=== PATIENT | male | born 1950 | race Hispanic/Latino ===

== ENCOUNTER 2017-04-14 19:00 | Observation (INO) | payer OTHER, MEDICARE ==
[~2017-04-14] VITALS: Ht 162.6 cm; Wt 66.2 kg
[~2017-04-14 19:00] MED LIST: AMLO5TAB2 PO; ASPI81TA3 PO; ATOR10TA66 PO; CARV6.252 PO; GLIP10TA10 PO; INSU100I SQ; INSU100V7 SUBQ; ISOS60TA2 PO; LISI-567 PO; TAMS0.4C98 PO
--- NOTE | 2017-04-14 19:05 | ED.REPORT ---
HPI-Syncope Date of Service Apr 14, 2017 ED Provider: Dr. Layne Pt is a 67 y/o male w/ a hx of CAD and TN in ' s/p LAD stenting, IDDM, HTN, hyperlipidemia, presenting to the ED via EMS with a family member c/o epigastric abdominal pain w/ radiation to the back onset prior to arrival. The patient was at work drinking coffee and eating and felt dizzy and his vision became black and he lost consciousness. Once he regained consciousness, he felt similarly dizzy and then 5 minutes later began to experience sharp, pleuritic, epigastric abdominal pain with radiation only to the back. Upon arrival of EMS, he was hypotensive and had ST elevation in leads V2 and V3 without reciprocal ST depression. He was given aspirin but not nitro due to hypotension. He has never experienced this previously, even when he had prior heart problems in the past. Pt denies chest pain, nausea, vomiting, numbness, weakness, KIM, current vision changes. At time of interview, his pain is almost completely resolved. For the past few days, he has been feeling fine without any illnesses. He had recent medication changes but this is not known at this time. He is not anticoagulated. Nursing Notes Stated Complaint: CHEST PAIN Nursing Notes Reviewed: Yes Allergies: Coded Allergies: Penicillins (Unverified Allergy, Unknown, 09/24/15) Unknown reaction; per cathode ray tube salvage processor RN, patient indicated he has a "Penicillin allergy". Scheduled Amlodipine (Amlodipine) 5 Mg Tablet 10 MG PO DAILY Aspirin Chew (Aspirin Chew) 81 Mg Tablet 81 MG PO DAILY Atorvastatin Calcium (Atorvastatin Calcium) 10 Mg Tablet 40 MG PO HS Carvedilol (Carvedilol) 6.25 Mg Tablet 25 MG PO BID Clopidogrel (Clopidogrel) 75 Mg Tablet 75 MG PO DAILY Gemfibrozil (Gemfibrozil) 600 Mg Tablet 600 MG PO BID Glipizide (Glipizide) 10 Mg Tablet 10 MG PO DAILY Hydrochlorothiazide (Hydrochlorothiazide) 12.5 Mg Capsule 12.5 MG PO DAILY Insulin Glargine (Lantus U100 Insulin Vial) 100 Unit/Ml Vial 60 UNIT SUBQ BID Isosorbide MN ER (Isosorbide MN ER) 60 Mg Tablet 60 MG PO 0730 Lisinopril (Lisinopril) 20 Mg Tablet 20 MG PO BID Pantoprazole (Pantoprazole DR) 40 Mg Tablet.dr 40 MG PO DAILY Tamsulosin (Flomax) 0.4 Mg Capsule 0.8 MG PO DAILY Terazosin (Terazosin) 10 Mg Capsule 10 MG PO HS Scheduled PRN Insulin Aspart (NovoLOG U-100 Pen) 100 Unit/Ml Insuln.pen 5 UNITS SQ PRN BG > 200 Miscellaneous Medications Empagliflozin (Jardiance) 10 Mg Tablet 10 MG PO Insulin Lispro (Humalog Kwikpen) 200 Unit/Ml (3 Ml) Insuln.pen 200 UNIT SQ General Time Seen by Provider: 19:05 Chief Complaint Lost consciousness Hx Obtained From: Patient, Other family..., EMS Arrived By: Ambulance Onset Occurred: Just prior to arrival Symptom Duration: 1 - 15 minutes Progression Since Onset: Gradually improving Location: : Abdomen Quality: Pleuritic, Sharp Severity: Current: Mild Severity: Maximum: Moderate Similar Sx Previous: No Past Medical History Past Medical History CAD s/p cardiac stenting IDDM Hypertension TN in 2016 s/p stenting to LAD Hyperlipidemia Past Surgical History 6 Right shoulder surgeries Neck surgery Balloon angioplasty to left anterior descending artery. Smoking History Former Smoker Ambulatory Status Independent Review of Systems Constitutional: Denies: Chills, Fever Respiratory: Reports: Shortness of breath, Denies: Non-productive cough Cardiovascular: Denies: Chest pain GI: Reports: Abdominal pain, Denies: Diarrhea, Nausea, Vomiting Neurologic: Reports: Syncope, Vision change, Denies: Focal weakness, Headache, Numbness, Weakness Complete sys rev & neg: except as marked. Physical Exam Initial Vital Signs Vital Signs (First) Date Time Temp Pulse Resp B/P Pulse Ox O2 Delivery O2 Flow Rate FiO2 04/14/17 19:26 36.1 62 18 101/56 98 Room Air Initial VS: Reviewed, Vital signs normal Head / Eyes: Atraumatic, Normocephalic, PERRL Neck: Supple, Full range of motion Upper Extremities: Vascular intact, Neuro intact, No swelling, No tenderness Skin: Warm, Dry, No cyanosis Psychiatric: Mood/affect normal, Behavior normal, Normal thought content General/Constitutional: Awake, Alert, No acute distress, Cooperative, Not toxic appearing Respiratory / Chest: Atraumatic, Breath sounds NL, Breath sounds = bilat, No respiratory distress, No rales, No rhonchi, No wheezing, No retractions, No stridor, No chest tenderness, No chest wall deformity Cardiovascular: Heart rate NL, Regular rhythm, Heart sounds NL, No gallop, No murmurs, No rubs, Cap refill not delayed, Peripheral circulation NL, Pulses = bilaterally Lower Extremity / Pelvis / MS: Atraumatic, Full range of motion, No deformity, Neurologic intact, Vascular intact Neurologic: Oriented X3, Speech NL, No motor deficits, No sensory deficits, CN II - XII intact, Cerebellar NL, Memory NL ENT: Atraumatic, Airway patent Mouth: Positive: Mucous membranes dry Abdomen: Atraumatic, Soft, Non-tender, No guarding, No rebound, No distention, No palpable mass, No pulsatile mass Interpretation & Diagnostics Interpretation & Diagnostics: CT chest/abd w/ and w/out contrast: IMPRESSION: 1. No evidence of aortic dissection. 2. Dense left coronary artery atherosclerotic calcifications. 3. Atherosclerotic calcifications in the origins of the renal arteries which may cause significant stenosis. 4. Cholelithiasis with prominence of the gallbladder wall. Acute cholecystitis cannot be excluded. If there is clinical concern for cholecystitis, then abdominal ultrasound should be performed for further evaluation. Dictated by: Noelle Eduardo MD, PhD on 04/14/2017 at 21:04 Approved by: Noelle Eduardo MD, PhD on 04/14/2017 at 21:13 Lab Results Interpretation Result Diagram: 04/14/17190904/14/171909 Test 04/14/17 19:10 04/14/17 22:15 White Blood Count 9.3th/mm3 (3.8-10.1) Red Blood Count 5.34mil/mm3 (4.40-5.80) Hemoglobin 14.7g/dL (13.8-17.2) Hematocrit 42.5% (41.0-50.0) Mean Corpuscular Volume 79.6fL (81-100) Mean Corpuscular Hemoglobin 27.5pg (27.0-35.0) Mean Corpuscular Hemoglobin Concent 34.6% (32.0-37.0) Red Cell Distribution Width 13.9% (12.3-15.4) Platelet Count 403bil/L (150-400) Neutrophils (%) (Auto) 54.2% (40-74) Lymphocytes (%) (Auto) 34.5% (14-46) Monocytes (%) (Auto) 8.7% (4-12) Eosinophils (%) (Auto) 2.0% (0-5) Basophils (%) (Auto) 0.4% (0-3) Prothrombin Time 9.5sec (8.1-12.5) Prothromb Time International Ratio 0.89ratio Activated Partial Thromboplast Time 22.4sec (22.8-33.0) Sodium Level 135mEq/L (134-144) Potassium Level 4.0mEq/L (3.5-5.2) Chloride Level 95mEq/L (97-108) Carbon Dioxide Level 21mmol/L (18-29) Blood Urea Nitrogen 28mg/dL (8-27) Creatinine 1.26mg/dL (0.76-1.27) Estimat Glomerular Filtration Rate 60mL/min (>59) Glucose Level 177mg/dL (60-99) Calcium Level 9.5mg/dL (8.5-10.1) Total Bilirubin 0.7mg/dL (0.0-1.2) Aspartate Amino Transf (AST/SGOT) 20U/L (0-50) Alanine Aminotransferase (ALT/SGPT) 18U/L (0-44) Alkaline Phosphatase 150U/L (25-160) Total Protein 8.0g/dL (6.4-8.4) Albumin 4.4g/dL (3.4-5.0) Lipase 16U/L (13-60) Magnesium Level 2.6mg/dL (1.6-2.6) Troponin T 0.010ug/L (0.0-0.011) Thyroid Stimulating Hormone (TSH) 0.963uIU/mL (0.450-4.500) ECG Interpretation ECG Interpretation: Sinus rhythm rate 67 Inferior Q waves and J point elevation in V2, V3, V4 Flipped T waves in I, AvL, V4, V5, V6 Similar to EKG taken 09/26 with exception of inverted T waves Time: 19:18 Interpreted by: ED physician Normal ECG Interpretation: Normal intervals X-Ray Chest Interpretation Chest Xray Interpretation: IMPRESSION: No acute cardiopulmonary disease process. Dictated by: Noelle Eduardo MD, PhD on 04/14/2017 at 19:49 Approved by: Noelle Eduardo MD, PhD on 04/14/2017 at 19:49 View: Portable, 1 view Interpretation / Wet Read by: Interpret - Radiologist Re-Eval/Medical Decision Med Decision/Clinical Course The patient presents after a syncopal episode, given his cardiac history or symptoms prior to the syncopal episode he will be admitted for further evaluation. After waking up the patient had some lower chest and epigastric pain radiating to his back. Upon arrival here his symptoms were almost resolved and shortly after resolved completely. He had a markedly abnormal EKG however it is similar to his prior EKG he does not have any reciprocal changes and his EKG was obtained when he did not have any chest pain. Additional differential diagnoses considered were acute coronary syndrome, pulmonary embolus, aortic dissection, pancreatitis, cholecystitis. The patient was found to have an abnormal gallbladder however on examination he did not have any pain to his right upper quadrant. Re-Evaluation/Progress #1: Time of Eval: 20:59 Re-Evaluation/Progress Note: Pt rechecked. Remains asymptomatic. Awaiting CT read. Re-Evaluation/Progress #2: Time of Eval: 21:34 Re-Evaluation/Progress Note: Pt rechecked. Informed pt of need for admission. Abdominal exam remains benign. Pt understands and agrees with plan for admission. All questions addressed. Consultation : Referral / Consult Name: Troy Greenwood MD Consulted With: Hospitalist Call Returned at: 21:33 Gastroenterology Nurse: Will see patient, Agrees with eval, Agrees with plan, Accepts admit Counseled Regarding: Diagnosis, Lab results, Need for admission Discharge & Departure Impression: Primary Impression: Syncope Syncope type: unspecified Qualified Code: R55 - Syncope and collapse Additional Impressions: Cholelithiasis Cholelithiasis location: gallbladder Cholecystitis presence: without cholecystitis Biliary obstruction: without biliary obstruction Qualified Code : K80.20 - Calculus of gallbladder without cholecystitis without obstruction Elevated troponin Disposition: ADMITTED TO HOSPITAL Discharge Condition All VS Reviewed: Yes Condition: Stable Referrals: Wilfred Kebede MD (PCP) Gloriaibmary Attestation Portions of this note were transcribed by Yan Nascimento. I, Dr. Layne personally performed the history, physical exam and medical decision-making; I reviewed and confirmed the accuracy of the information in the transcribed note. Signed by Jose Alberto Mcnally, 6/3/1930 copies to: Wilfred Kebede MD, Jena M MD Apr 14, 2017 19:05 YAN NASCIMENTO Apr 14, 2017 19:12
[2017-04-14] MEDS ORDERED: Dextrose 5% 250 ML IV ONE (19:16)
[2017-04-14] MEDS ORDERED: Heparin 1,000 Unit/mL 10 mL Inj ONE (19:16)
[2017-04-14] MEDS ORDERED: Nitroglycerin 50,000 mcg/250 mL D5W Premix IV ONE (19:16)
[2017-04-14] MEDS ORDERED: Heparin 1,000 Units/500 mL NS Premix IV ONE (19:16)
[2017-04-14] MEDS ORDERED: Heparin 10,000 Unit/1,000 mL NS Premix IV ONE (19:17)
[2017-04-14] MEDS ORDERED: NitroPRUSSIDE 25,000 mCg/mL 2 mL Inj IV ONE (19:17)
[2017-04-14] MEDS ORDERED: 0.9% Sodium Chloride 0 ML ONE (19:17)
[2017-04-14 19:20] LABS: BASOPHILS % (AUTO) 0.4 % (0-3); MONOCYTES % (AUTO) 8.7 % (4-12); Mean Corpuscular Hemoglobin 27.5 pg (27.0-35.0); Mean Corpuscular Volume 79.6 fL (81-100); NEUTROPHILS % (AUTO) 54.2 % (40-74); Platelet Count 403 bil/L (150-400)
[2017-04-14] MEDS ORDERED: 0.9% Sodium Chloride 1,000 ML IV ONE (19:20)
[2017-04-14 19:26] VITALS: BP 101/56; PULSE 62; RESP 18; O2SAT 98
[2017-04-14 19:30] VITALS: BP 100/57; PULSE 65; RESP 16; O2SAT 97
--- NOTE | 2017-04-14 19:50 | DRSVH ---
PROCEDURE: X-RAY CHEST ONE VIEW, PORTABLE ([id number]) INDICATIONS: STEMI TECHNIQUE: One view of the chest was acquired. COMPARISON: None. FINDINGS: Surgical changes and devices: Cervical spine fixation hardware Lungs and pleura: No pleural effusions or pneumothorax. Lungs are clear. Mediastinum: Mediastinal contours appear normal. Heart size is normal. Bones and chest wall: No suspicious bony lesions. Overlying soft tissues appear unremarkable. IMPRESSION: No acute cardiopulmonary disease process. Dictated by: Noelle Eduardo MD, PhD on 04/14/2017 at 19:49 Approved by: Noelle Eduardo MD, PhD on 04/14/2017 at 19:49
[2017-04-14 20:00] VITALS: BP 101/54; PULSE 67; RESP 16; O2SAT 96
[2017-04-14 20:01] LABS: INR 0.89 ratio
[2017-04-14 20:24] LABS: TROPONIN T 0.023 ug/L (0.0-0.011)
--- NOTE | 2017-04-14 21:14 | DRSVH ---
PROCEDURE: CT ANG CHEST/ABD W/WO CONTRAST ([id number]) INDICATIONS: syncope with epigastric pain and back pain TECHNIQUE: Precontrast 5 mm thick sections acquired from the lung apices to the iliac crests. After the adminis tration of intravenous contrast, 3 mm thick sections again acquired from the lung apices to the iliac crests. 3-dimensional maximum intensity projection (MIP) oblique sagittal and coronal reformats wer e then acquired, and/or 3-dimensional volume rendering reformats. For radiation dose reduction, the following was used: automated exposure control. COMPARISON: None. FINDINGS: Image quality: Excellent. AORTA: Intramural hematoma: Absent Maximum hematoma thickness: Not applicable Focal contrast enhancement: Intramural blood pool (< 2 mm neck or imperceptible communication with aortic lumen): Absent. Ulcer-like projection (broad communication with aortic lumen > 3 mm): Absent. Dissection: Absent. Ra[place] classification: Not applicable. Maximum aortic diameter: 3.3 cm. [If [place] A dissection, > 5.0 cm has a poorer prognosis. If [place] B dissection, > 4.0 cm has a poorer prognosis.] Periaortic hematoma: Absent. CHEST: Lungs and pleura: No acute airspace opacities. Granuloma noted in the right lung base. No pleural e ffusions or pneumothorax. Central and peripheral airways are patent and normal in caliber. Mediastinum: Heart size is normal. Atherosclerotic calcifications are noted in the aorta, great vess els and dense atherosclerotic calcifications in the left coronary vasculature. No pericardial effusi on. No mediastinal or hilar adenopathy by size criteria. Central pulmonary arteries are normal in s ize. Esophagus is normal in caliber. No hiatal hernias. Bones and chest wall: Cervical spine fixation hardware noted. No axillary adenopathy by size criter ia. Calcified mediastinal and right hilar lymph nodes noted compatible with sequela prior granulomato us disease. Thyroid gland is within normal limits. No suspicious bony lesions. No vertebral body co mpression fractures. ABDOMEN: Vasculature: Celiac trunk and mesenteric arteries are patent. Renal arteries are also patent. Solid organs: Liver and spleen are normal in size. Gallbladder contains a 2.7 cm gallstone in the g allbladder neck. Gallbladder wall is prominent. Biliary system is non dilated. Pancreas enhances n ormally. No adrenal nodules. Both kidneys are normal in size and enhancement, without hydronephrosi s. Peritoneum and bowel: Small hiatal hernia is noted. No free fluid or air. Bowel loops are normal i n caliber and wall thickness. Nodes and vessels: No retroperitoneal or mesenteric adenopathy by size criteria. Inferior vena cava is normal in morphology. Scattered atherosclerotic calcifications are noted in the abdominal and pel brett Vasculature. Atherosclerotic calcifications noted origins of the renal arteries which may cause s ignificant stenosis. Bones: No suspicious bony lesions. No vertebral body compression fractures. Miscellaneous: No ventral hernias. IMPRESSION: 1. No evidence of aortic dissection. 2. Dense left coronary artery atherosclerotic calcifications. 3. Atherosclerotic calcifications in the origins of the renal arteries which may cause significant s tenosis. 4. Cholelithiasis with prominence of the gallbladder wall. Acute cholecystitis cannot be excluded. If there is clinical concern for cholecystitis, then abdominal ultrasound should be performed for fu rther evaluation. Dictated by: Noelle Eduardo MD, PhD on 04/14/2017 at 21:04 Approved by: Noelle Eduardo MD, PhD on 04/14/2017 at 21:13
[2017-04-14] MEDS ORDERED: Senna-Docusate 8.6-50 mg Tablet PO PRN (21:50)
[2017-04-14] MEDS ORDERED: Alum-Mag Hydrox-Simeth 30 mL Suspension PO PRN (21:50)
[2017-04-14] MEDS ORDERED: Ondansetron 2 mg/mL 2 mL Inj IVPUSH PRN (21:50)
[2017-04-14] MEDS ORDERED: Polyethylene Glycol (PEG) 17 Gm Powder PO PRN (21:50)
[2017-04-14 23:02] VITALS: BP 125/62; PULSE 79; RESP 14; O2SAT 98
[2017-04-14 23:15] VITALS: BP 110/66; PULSE 83; RESP 16; O2SAT 97
--- NOTE | 2017-04-14 23:15 | NUR ---
Admission to [facility] Room 2027 Pt arrived to room 2027 at approximately 2315 with spouse and belongings. Pt had his home medications with him in a bag for the medication reconciliation. Pt's still has the home medications in the room inside of the bag since she stayed the night. Pt is [place] speaking only. used the chore worker stick to assist with the pt interview. Pt denies pain at this time and VSS and pt is AOx3, and GIVENS. Pt denies SOB with SpO2 >92% on RA.
[2017-04-14 23:19] LABS: Magnesium 2.6 mg/dL (1.6-2.6)
--- NOTE | 2017-04-14 23:32 | PCM.HPMED ---
Subjective Date of Service Apr 14, 2017 Primary Provider: Admitting Physician: Troy Greenwood MD Primary Care Physician: Wilfred Kebede MD Attending Physician: Troy Greenwood MD Admit Status: From the Emergency Department Chief Complaint: Acute onset epigastric abdominal pain that was radiating to the back, associated with vision change. History of Present Illness: This is a pleasant 67 Y/O Malaysian-speaking M with hx of CAD and NC in 2016 s/p LAD stenting, DM controlled on Humolog insulin pen, HTN, hyperlipidemia, who presented to the ED via EMS with complaint of acute onset epigastric abdominal pain with radiation to the middle back onset just prior to arrival. In the ED he was hypotensive and had ST elevation in leads V2 and V3 without reciprocal ST depression. He was given aspirin but not nitro due to hypotension. He is accompanied by his . The patient was on break while at work reports he was drinking coffee. He then got up to return to work when he started to experience the epigastric pain he described as a pressure. Associated symptoms included shortness of breath, and the sensation that his vision suddenly went white, he also felt dizzy (however his explanation was recorded as 2 dizziness upon further questioning was somewhat convoluted, and the rate later stated that he was not dizzy). Per the ED physician note, the patient initially reported loss of consciousness. However he adamantly denies ever having lost consciousness to this physician. He states that the pain lasted about 30 minutes total and was not associated with exertion,or postprandial type pain. He does report that the pain was very similar to what it was like when he had his NC in 2016. This again is different then what was told to the ED physician, in that the patient reported he never experienced this pain previously. Even when he had prior heart problems in the past. His pain was nearly completely resolved shortly after having arrived in the ED. In the ED he essentially only had received IV fluids and his pain completely resolved thereafter. He does report recent medication changes to his insulin medication only. He is no longer taking Lantus and is only taking Humalog. He is compliant on all of his current antihypertensive medications including lisinopril 20 mg twice per day, carvedilol 6.25 mg twice per day, amlodipine 5 mg daily, and isosorbide mononitrate 60 mg daily. He has been on these BP medications for some time and denies any side effects or hypotension. He is not anticoagulated. He denied fever, chills, sweats, productive cough, chest pain, nausea, vomiting, numbness in the extremities, weakness, KIM, current vision changes, and current epigastric abdominal pain, dysuria, constipation. Of note he does have a history of difficulty urinating, and also takes tamsulosin for BPH. In the ED: Troponin 0.023,--> 0.013,--> 0.010 EKG: ST elevation in leads V2 and V3, and V4 with T wave inversion in Lead 1, AvL, V4-V6. CXR: No acute cardiopulmonary disease process. CT Angio chest abdomen with and without contrast showed: 1. No evidence of aortic dissection. 2. Dense left coronary artery atherosclerotic calcifications. 3. Atherosclerotic calcifications renal arteries, T 36.1, pulse 62, RR 18, blood pressure 101/56 map 71, and a percent on room air. H/H 14.7/42.5, WBC 9.3, platelets 403, otherwise normal hemogram. Chemistry panel: Sodium 135, potassium 4.0, chloride 95, CO2 21, BUN 28, creatinine 1.26, glucose 177, magnesium 3.0, remainder of chemistry panel within normal limits. Review of Systems: A comprehensive review of systems was conducted and was negative except as mentioned in history of present illness. Allergies Coded Allergies: Penicillins (Unverified Allergy, Unknown, 09/24/15) Unknown reaction; per slab puller RN, patient indicated he has a "Penicillin allergy". Home Medications Scheduled New Medication insulin Humalog pen Amlodipine (Amlodipine) 5 Mg Tablet 10 MG PO DAILY Aspirin Chew (Aspirin Chew) 81 Mg Tablet 81 MG PO DAILY Atorvastatin Calcium (Atorvastatin Calcium) 10 Mg Tablet 40 MG PO HS Carvedilol (Carvedilol) 6.25 Mg Tablet 25 MG PO BID Glipizide (Glipizide) 10 Mg Tablet 10 MG PO DAILY Stopped Insulin Glargine (Lantus U100 Insulin Vial) 100 Unit/Ml Vial 60 UNIT SUBQ BID Isosorbide MN ER (Isosorbide MN ER) 60 Mg Tablet 60 MG PO 0730 Lisinopril (Lisinopril) 20 Mg Tablet 20 MG PO BID Tamsulosin (Flomax) 0.4 Mg Capsule 0.8 MG PO DAILY Scheduled PRN Stopped Insulin Aspart (NovoLOG U-100 Pen) 100 Unit/Ml Insuln.pen 5 UNITS SQ PRN BG > 200 PMH CAD s/p cardiac stenting IDDM Hypertension NC in 2016 s/p stenting to LAD Hyperlipidemia Surgical History 6 Right shoulder surgeries Neck surgery Balloon angioplasty to left anterior descending artery. Family History Denies family history of coronary artery disease, stroke, hypertension, or cancer. Patient does mention that he possibly may have had an aunt with diabetes mellitus Social History Hx Alcohol Use: No Hx Substance Use: No Smoking Status: Former Smoker Living Arrangement: with Family ( Angie) Exam Vital Signs Vital Sign - Last Date Time Temp Pulse Resp B/P Pulse Ox O2 Delivery O2 Flow Rate FiO2 04/14/17 23:02 36.6 79 14 125/62 98 Room Air Exam General: Alert and oriented Malaysian-speaking male, in no acute distress, sleeping in bed, but easily aroused. Patient speaks in full sentences. HEENT: NC/AT, eyes, PERRLA, EOMI, neck, soft supple, no adenopathy, no JVD, no masses, no thyromegaly, throat mucous membranes pink and moist, no erythema, no exudates, no tonsillar swelling, no uvular deviation. Lungs: CTAB all napier, no wheezes, no rhonchi, no crackles, no adventitious lung sounds, no use of accessory muscles of respiration, good air movement, good respiratory effort. Heart: Regular rate and rhythm, no murmur, S1-S2 present, no rub, no click, no distant heart sounds, Abdomen: Soft, nontender, nondistended, bowel sounds active, no rebound, no guarding, Genitourinary: No CVA tenderness, no suprapubic tenderness, no Dai catheter, Extremities: pulses equal and symmetric upper/lower extremity including radial and dorsalis pedis, no edema Neurologic: Grossly neurologically intact, speaking in full sentences, no focal neurological signs. Skin: Dry and warm Psychiatric: Mood is cheerful Lab and Diagnostics Result Diagram: 04/14/17190904/14/171909 X-Rays, CTs and MRIs Date of Service: 04/14/171903 PROCEDURE: X-RAY CHEST ONE VIEW, PORTABLE INDICATIONS: STEMI IMPRESSION: No acute cardiopulmonary disease process. Dictated by: Noelle Eduardo MD, PhD on 04/14/2017 at 19:49 Approved by: Noelle Eduardo MD, PhD on 04/14/2017 at 19:49 Date of Service: 04/14/171916 PROCEDURE: CT ANG CHEST/ABD W/WO CONTRAST INDICATIONS: syncope with epigastric pain and back pain AORTA: Intramural hematoma: Absent Maximum hematoma thickness: Not applicable Focal contrast enhancement: Intramural blood pool (< 2 mm neck or imperceptible communication with aortic lumen): Absent. Ulcer-like projection (broad communication with aortic lumen > 3 mm): Absent. Dissection: Absent. [place] classification: Not applicable. Maximum aortic diameter: 3.3 cm. [If [place] A dissection, > 5.0 cm has a poorer prognosis. If [place] B dissection, > 4.0 cm has a poorer prognosis.] Periaortic hematoma: Absent. CHEST: Lungs and pleura: No acute airspace opacities. Granuloma noted in the right lung base. No pleural effusions or pneumothorax. Central and peripheral airways are patent and normal in caliber. Mediastinum: Heart size is normal. Atherosclerotic calcifications are noted in the aorta, great vessels and dense atherosclerotic calcifications in the left coronary vasculature. No pericardial effusion. No mediastinal or hilar adenopathy by size criteria. Central pulmonary arteries are normal in size. Esophagus is normal in caliber. No hiatal hernias. Bones and chest wall: Cervical spine fixation hardware noted. No axillary adenopathy by size criteria. Calcified mediastinal and right hilar lymph nodes noted compatible with sequela prior granulomatous disease. Thyroid gland is within normal limits. No suspicious bony lesions. No vertebral body compression fractures. ABDOMEN: Vasculature: Celiac trunk and mesenteric arteries are patent. Renal arteries are also patent. Solid organs: Liver and spleen are normal in size. Gallbladder contains a 2.7 cm gallstone in the gallbladder neck. Gallbladder wall is prominent. Biliary system is non dilated. Pancreas enhances normally. No adrenal nodules. Both kidneys are normal in size and enhancement, without hydronephrosis. Peritoneum and bowel: Small hiatal hernia is noted. No free fluid or air. Bowel loops are normal in caliber and wall thickness. Nodes and vessels: No retroperitoneal or mesenteric adenopathy by size criteria. Inferior vena cava is normal in morphology. Scattered atherosclerotic calcifications are noted in the abdominal and pelvic Vasculature. Atherosclerotic calcifications noted origins of the renal arteries which may cause significant stenosis. Bones: No suspicious bony lesions. No vertebral body compression fractures. Miscellaneous: No ventral hernias. IMPRESSION: 1. No evidence of aortic dissection. 2. Dense left coronary artery atherosclerotic calcifications. 3. Atherosclerotic calcifications in the origins of the renal arteries which may cause significant stenosis. 4. Cholelithiasis with prominence of the gallbladder wall. Acute cholecystitis cannot be excluded. If there is clinical concern for cholecystitis, then abdominal ultrasound should be performed for further evaluation. Dictated by: Noelle Eduardo MD, PhD on 04/14/2017 at 21:04 Approved by: Noelle Eduardo MD, PhD on 04/14/2017 at 21:13 Assessment & Plan This is a 67 Y/O Malaysian-speaking M with hx of CAD with NC in 2016 s/p LAD stenting, DM on insulin, HTN, hyperlipidemia, presenting to the ED via EMS with a family member c/o epigastric abdominal pain w/ radiation to the back onset prior to arrival. Given patient's presenting symptoms and history of recent NC he was admitted for further workup. Patient received was essentially just IV fluids in the ED with resolution of his pain. Patient's physical exam on admission was essentially normal and he was no longer experiencing epigastric abdominal pain. Abdominal pain radiating to the back, Acute Coronary Syndrome rule out, present on admission, active -Differential diagnosis includes aortic dissection ruled out with CT chest/ abdomen, PE, ACS, ischemic bowel however ruled out on CT, cholecystitis, infectious process. -Patient has CAD, status post stenting to the left anterior descending artery after NC in 2016. -Just prior to this admission he had experienced syncopal episode associated with severe abdominal pain radiating to the back. -CXR showed: No acute cardiopulmonary disease process. -O2 Sats keep > 94% -IV fluids -Morphine for pain control -We will hold Nitro given hypotension -Aspirin 325mg -We will hold on Unfractionated Heparin IV, as patient's troponins continue to trend down. -Continuous Cardiac Monitoring/BP monitoring -Cardio Consult (in AM), may consider stress testing, and cardiac echo. Acute Syncopal Episode, Present on Admission, active -Patient reported loss of consciousness to the ED physician, however denied ever having lost consciousness to this physician. -Patient has history of coronary artery disease status post NC in 2016 with stenting of the left anterior descending artery. -DDX cardiac/vascular related syncope, hypovolemia, medication induced hypotensive episode, HypoGlycemia, Seizures. -Hydration/Electrolyte balance with IV fluids NS. -We will obtain Orthostatics -Continuous Cardiac monitoring -No Neurologic signs/symptoms on exam or in history. -Echo to evaluate structural heart defects, or aortic stenosis. -EKG to evaluate for Arrhythmias -We evaluated for new medication changes that might explain his syncopal episode. Patient states his Lantus was stopped, and he was started on new Humalog insulin pen. Cholelithiasis without biliary obstruction, present on admission, active -he denies postprandial pain -CT showed: Cholelithiasis with prominence of the gallbladder wall. Acute cholecystitis cannot be excluded. -Physical exam was completely benign patient had no epigastric or abdominal pain whatsoever on palpation, normal bowel tones, and was without rebound or guarding. Deep palpation to the subcostal to the right subcostal upper quadrant did not elicit Ramirez's sign. Uncontrolled Diabetes, present on admission, active -glucose 177, -A1c ordered and pending -Start low-dose correctional insulin -Patient not currently taking Lantus. -We will hold Glipizide 10 Mg Tablet 10 MG PO DAILY -We will hold Insulin Humalog pen -He recently stopped his NovoLog pen Chronic problems Hypertension, presumed stable -Continue medication Carvedilol 6.25 Mg Tablet 25 MG PO BID -Continue medication Amlodipine 5 Mg Tablet 10 MG PO DAILY -Continue medication Isosorbide MN ER 60 Mg Tablet 60 MG PO 0730 -We will hold medication lisinopril Hyperlipidemia, presumed stable -Lipid panel -Continue medication Atorvastatin Calcium (Atorvastatin Calcium) 10 Mg Tablet 40 MG PO HS BPH -We will continue medication Tamsulosin 0.4 Mg Capsule 0.8 MG PO DAILY Disposition: Patient is admitted under observation status with expected length of stay less than 2 midnights due to severity of presenting symptoms, risk of adverse event, and complexity of treatment plan. 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 DVT PE prophylaxis: SCD's/SubQ heparin Q8H Contact: Angie [phone] VTE Prophylaxis: Sub-Q Heparin (Unfractionated), SCDs Resuscitation Status: CPR: Attempt Resuscitation Bertram Malave DO Apr 14, 2017 23:32 Troy Greenwood MD Apr 15, 2017 05:12 #Hypertension, presumed stable -Continue medication Carvedilol 6.25 Mg Tablet 25 MG PO BID -Continue medication Amlodipine 5 Mg Tablet 10 MG PO DAILY -Continue medication Isosorbide MN ER 60 Mg Tablet 60 MG PO 0730 -We will hold medication lisinopril #Hyperlipidemia, presumed stable -Lipid panel -Continue medication Atorvastatin Calcium (Atorvastatin Calcium) 10 Mg Tablet 40 MG PO HS #BPH -We will continue medication Tamsulosin 0.4 Mg Capsule 0.8 MG PO DAILY Disposition: Patient is admitted under observation status with expected length of stay less than 2 midnights due to severity of presenting symptoms, risk of adverse event, and complexity of treatment plan. 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 DVT PE prophylaxis: SCD's/SubQ heparin Q8H Contact: Angie [phone] VTE Prophylaxis: Sub-Q Heparin (Unfractionated), SCDs Resuscitation Status: CPR: Attempt Resuscitation Bertram Malave DO Apr 14, 2017 23:32 Troy Greenwood MD Apr 15, 2017 05:12
[2017-04-14] MEDS ORDERED: EMPA10TA PO (23:52)
[2017-04-14] MEDS ORDERED: TERA10CA5 PO (23:52)
[2017-04-14] MEDS ORDERED: HYDR12.5 PO (23:52)
[2017-04-14] MEDS ORDERED: GEMF600T3 PO (23:53)
[2017-04-14] MEDS ORDERED: INSU200I SQ (23:53)
[2017-04-14] MEDS ORDERED: PANT40TA3 PO (23:53)
[2017-04-14] MEDS ORDERED: CLOP75TA28 PO (23:53)
[2017-04-15] VITALS (9 sets, daily range): BP systolic 120–157; BP diastolic 57–81; PULSE 63–97; RESP 16–22; O2SAT 95–99
[2017-04-15] MEDS: 0.9% Sodium Chloride 1,000 ML IV SCH ×2 (00:03→12:41)
[2017-04-15] MEDS: Heparin 5,000 Unit/mL Inj SUBQ SCH ×3 (00:04→16:30)
[2017-04-15] MEDS: Sodium Chloride LOK Flush 10 mL Syringe IVFLUSH SCH ×3 (00:04→16:30)
[2017-04-15 04:10] LABS: BASOPHILS % (AUTO) 0.3 % (0-3); MONOCYTES % (AUTO) 8.6 % (4-12); Mean Corpuscular Volume 78.9 fL (81-100); NEUTROPHILS % (AUTO) 63.1 % (40-74); Platelet Count 312 bil/L (150-400)
--- NOTE | 2017-04-15 06:30 | NUR ---
Labs Pt's last troponin slightly increased from 0.010 to 0.013. Pt denies chest pain at this time. Pt is NPO and pt's BG at 0345 was 166. Pt's A1c is still pending at this time. After fluid resuscitation pt's WBC still increased from previous lab draw and is now 11.9.
[2017-04-15] MEDS ORDERED: Glucose 40% Oral Gel 15 Gm Tube PO PRN (06:50)
[2017-04-15] MEDS ORDERED: Dextrose 10% 250 ML IV PRN (07:05)
[2017-04-15] MEDS: Isosorbide Mononitrate 60 mg ER24 Tablet PO SCH (07:30)
[2017-04-15] MEDS: Insulin LISPRO 300 Unit/3 mL Inj SUBQ SCH ×4 (09:00→21:51)
--- NOTE | 2017-04-15 12:05 | NUR ---
Case Management: MCDANIEL and Medicare Part D delivered and explained to pt. and family at bedside. Signed original placed in chart. Copy left at bedside. Ileana Huntley RN
[2017-04-15] MEDS: Pantoprazole 40 mg ER24 Tablet PO SCH (12:40)
--- NOTE | 2017-04-15 15:35 | PCM.PNMED ---
Subjective Date of Service Apr 15, 2017 Subjective Patient seen and examined at bedside . No new development, no CP, no SOB No LOC, no fever, no chills , no abdominal pain, no nausea, no vomiting Exam Vital Signs Vital Sign - Last Date Time Temp Pulse Resp B/P Pulse Ox O2 Delivery O2 Flow Rate FiO2 04/15/17 12:31 36.6 73 16 135/74 95 Room Air Intake and Output 04/14/17 04/14/17 04/15/17 Cumulative From/Thru 15:00 23:00 07:00 04/14/17 19:24 - 04/15/17 05:20 Intake Total 1000 ml 0 ml 1000 ml Output Total 300 ml 300 ml Balance 1000 ml -300 ml 700 ml Intake Oral 0 ml 0 ml IV Total 1000 ml 1000 ml Output Urine Total 300 ml 300 ml # Bowel Movements 0 0 Exam Gen : Sitting in chair comfortably. NAD , very pleasant HEENT : Sclerae is anicteric Neck : Supple, no JVD , trachea is midline Chest : Normal respiratory effort Lung : clear B/l, no crackles , no wheezing Heart : S1WS2, RRR, no gallop Abdo,en : benign Ext : No edema, no cyanosis Neuro : AAOx 3, non focal IVs and Medications Medications Reviewed: Medications were reviewed in detail Lab and Diagnostics Result Diagram: 04/15/1734504/15/17345 X-Rays, CTs and MRIs Date of Service: 04/14/171903 PROCEDURE: X-RAY CHEST ONE VIEW, PORTABLE INDICATIONS: STEMI IMPRESSION: No acute cardiopulmonary disease process. Dictated by: Noelle Eduardo MD, PhD on 04/14/2017 at 19:49 Approved by: Noelle Eduardo MD, PhD on 04/14/2017 at 19:49 Date of Service: 04/14/171916 PROCEDURE: CT ANG CHEST/ABD W/WO CONTRAST INDICATIONS: syncope with epigastric pain and back pain AORTA: Intramural hematoma: Absent Maximum hematoma thickness: Not applicable Focal contrast enhancement: Intramural blood pool (< 2 mm neck or imperceptible communication with aortic lumen): Absent. Ulcer-like projection (broad communication with aortic lumen > 3 mm): Absent. Dissection: Absent. [place] classification: Not applicable. Maximum aortic diameter: 3.3 cm. [If [place] A dissection, > 5.0 cm has a poorer prognosis. If [place] B dissection, > 4.0 cm has a poorer prognosis.] Periaortic hematoma: Absent. CHEST: Lungs and pleura: No acute airspace opacities. Granuloma noted in the right lung base. No pleural effusions or pneumothorax. Central and peripheral airways are patent and normal in caliber. Mediastinum: Heart size is normal. Atherosclerotic calcifications are noted in the aorta, great vessels and dense atherosclerotic calcifications in the left coronary vasculature. No pericardial effusion. No mediastinal or hilar adenopathy by size criteria. Central pulmonary arteries are normal in size. Esophagus is normal in caliber. No hiatal hernias. Bones and chest wall: Cervical spine fixation hardware noted. No axillary adenopathy by size criteria. Calcified mediastinal and right hilar lymph nodes noted compatible with sequela prior granulomatous disease. Thyroid gland is within normal limits. No suspicious bony lesions. No vertebral body compression fractures. ABDOMEN: Vasculature: Celiac trunk and mesenteric arteries are patent. Renal arteries are also patent. Solid organs: Liver and spleen are normal in size. Gallbladder contains a 2.7 cm gallstone in the gallbladder neck. Gallbladder wall is prominent. Biliary system is non dilated. Pancreas enhances normally. No adrenal nodules. Both kidneys are normal in size and enhancement, without hydronephrosis. Peritoneum and bowel: Small hiatal hernia is noted. No free fluid or air. Bowel loops are normal in caliber and wall thickness. Nodes and vessels: No retroperitoneal or mesenteric adenopathy by size criteria. Inferior vena cava is normal in morphology. Scattered atherosclerotic calcifications are noted in the abdominal and pelvic Vasculature. Atherosclerotic calcifications noted origins of the renal arteries which may cause significant stenosis. Bones: No suspicious bony lesions. No vertebral body compression fractures. Miscellaneous: No ventral hernias. IMPRESSION: 1. No evidence of aortic dissection. 2. Dense left coronary artery atherosclerotic calcifications. 3. Atherosclerotic calcifications in the origins of the renal arteries which may cause significant stenosis. 4. Cholelithiasis with prominence of the gallbladder wall. Acute cholecystitis cannot be excluded. If there is clinical concern for cholecystitis, then abdominal ultrasound should be performed for further evaluation. Dictated by: Noelle Eduardo MD, PhD on 04/14/2017 at 21:04 Approved by: Noelle Eduardo MD, PhD on 04/14/2017 at 21:13 Assessment & Plan This is a 67 Y/O Burkinan-speaking M with hx of CAD with WI in 2016 s/p LAD stenting, DM on insulin, HTN, hyperlipidemia, presenting to the ED via EMS with a family member c/o epigastric abdominal pain w/ radiation to the back onset prior to arrival. Given patient's presenting symptoms and history of recent WI he was admitted for further workup. Patient received was essentially just IV fluids in the ED with resolution of his pain. Patient's physical exam on admission was essentially normal and he was no longer experiencing epigastric abdominal pain. 1. Abdominal pain : Resolved chest is negative . CT abdomen : CT showed: Cholelithiasis with prominence of the gallbladder wall. Acute cholecystitis cannot be excluded. Patient has no angina per se , but epigastric pain was being taken in the context of possible angina. Troponin is negative or high normal at 0.013. His symptoms resolved at this time and all he wants is to go home 2. Near Syncope : Patient denies that He stated he has some blurry vision after taking his insulin. No hypoglycemia reported on arrival. He used to be in Lantus previously and was recently changed to humalog Echocardiography pending Continue telemetry monitoring 3. Hypotension : POA Responded to IVF. blood pressure normalized now 5. Cholelithiasis : No clinical evidence of cholecystitis Will monitor closely Wbc 11 6. Uncontrolled Diabetes, present on admission, active -glucose 177, -A1c pending -Start low-dose correctional insulin - He is on glipizide at home and humalog pre-meal BID ( 25 units) Chronic problems Hypertension, presumed stable: On Carvedilol 6.25 Mg Tablet 25 MG PO BID , Amlodipine 5 Mg Tablet 10 MG PO DAILY , Isosorbide MN ER 60 Mg Tablet 60 MG PO 0730 Hyperlipidemia, presumed stable -Lipid panel. On satins BPH On Tamsulosin Patient is clinically and hemodynamically stable Plan of care as above . Hopefully home within 48 hours CBC, CMP, troponin , procalcitonin in am VTE Prophylaxis: Sub-Q Heparin (Unfractionated), SCDs Resuscitation Status: CPR: Attempt Resuscitation Time spent 35 minutes Villa Etienne MD Apr 15, 2017 15:35
--- NOTE | 2017-04-15 20:51 | NUR ---
Pain free / Ambulating / Diabetes & HTN education VVS. SR 60s. BPs 120s/60s-80s. Denies lightheadedness, vision changes, chest pain. IVF @ 80/hr per orders. Taking ADA diet well. BGs noted in EMR; ranging 166 while NPO to 281, with Sliding scale coverage. Started review of Diabetes & HTN management with pt & family, aided by son interpreting. Booklets given in both prydeinig & turkmen per their request.
[2017-04-16] MEDS: Sodium Chloride LOK Flush 10 mL Syringe IVFLUSH SCH ×3 (00:44→16:30)
[2017-04-16] MEDS: Heparin 5,000 Unit/mL Inj SUBQ SCH ×3 (00:44→17:26)
[2017-04-16] MEDS: 0.9% Sodium Chloride 1,000 ML IV SCH (00:44)
[2017-04-16 03:34] VITALS: BP 141/73; PULSE 78; RESP 16; O2SAT 97
[2017-04-16 04:57] LABS: BASOPHILS % (AUTO) 0.4 % (0-3); EOSINOPHILS % (AUTO) 2.3 % (0-5); MONOCYTES % (AUTO) 10.3 % (4-12); Mean Corpuscular Hemoglobin 28.1 pg (27.0-35.0); Mean Corpuscular Volume 81.3 fL (81-100); NEUTROPHILS % (AUTO) 55.2 % (40-74); Platelet Count 306 bil/L (150-400)
--- NOTE | 2017-04-16 05:20 | NUR ---
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 Pt does not c/o chest pain. Pt has had no c/o dizziness, light headedness, or change in vision. Pt's BP has remained WNL to hypertensive. Pt's HS BG was 374 and 4units of Lispro was given.
[2017-04-16 09:00] VITALS: BP 167/84; PULSE 75; RESP 16; O2SAT 97
[2017-04-16] MEDS: Pantoprazole 40 mg ER24 Tablet PO SCH (09:17)
[2017-04-16] MEDS: Insulin LISPRO 300 Unit/3 mL Inj SUBQ SCH ×3 (09:22→18:09)
[2017-04-16] MEDS: Isosorbide Mononitrate 60 mg ER24 Tablet PO SCH (09:34)
[2017-04-16 10:14] VITALS: PULSE 71
[2017-04-16 12:31] VITALS: BP 142/75; PULSE 77; RESP 17; O2SAT 97
--- NOTE | 2017-04-16 14:38 | NUR ---
Social Work Note: Initial Assessment Data& Assessment: EMR reviewed. SW met with pt and pt orin Vasquez ([phone]) at bedside to discuss discharge planning, SW role explained. Doug Eubanks is a 67 year old male admitted under observation on 04/14/2017 for syncope and elevated troponin. Pt has [facility] and Medicare insurance coverage. Pt sees Wilfred Kebede MD for primary care. Pt lives in [place] with his and daughter and is independent at baseline. Pt does not use any DME at baseline, drives and does not have HH or SNF hx. Pt does not have LTC insurance or VA benefits. Pt and pt family provided with DPOA/Advance Directive paperwork to review and complete when possible as well as a [place] Advance Directive Guide. Pt family to transport home when medically ready. Pt and pt family denies any other needs at this time. SW to continue to follow if any needs arise. Plan: Anticipated discharge home via POV when medically ready. Pt and pt family denies any other needs at this time. SW to continue to follow if any needs arise. SLICK Liriano Addendum: 04/16/17 at 1442 by SANJUANA PETERSON Amended: Links added.
--- NOTE | 2017-04-16 17:03 | PCM.PNMED ---
Subjective Date of Service Apr 16, 2017 Subjective Patient seen and examined at bedside . Routine EKG this Am show ST elevation, which seems to be chronic comparing to old EKG . Patient has no angina or angina equivalent Troponin x 2 negative . Afebrile Anxious to go home Exam Vital Signs Vital Sign - Last Date Time Temp Pulse Resp B/P Pulse Ox O2 Delivery O2 Flow Rate FiO2 04/16/17 12:31 36.7 77 17 142/75 97 Room Air Intake and Output 04/15/17 04/15/17 04/16/17 Cumulative From/Thru 15:00 23:00 07:00 04/14/17 19:24 - 04/16/17 05:09 Intake Total 2164 ml 400 ml 3564 ml Output Total 1200 ml 500 ml 2000 ml Balance 964 ml -100 ml 1564 ml Intake Oral 1180 ml 400 ml 1580 ml IV Total 984 ml 1984 ml Output Urine Total 1200 ml 500 ml 2000 ml # Voids 2 2 # Bowel Movements 0 0 0 Exam Gen :NAD , very pleasant . AAOx 3 HEENT : Sclerae is anicteric Neck : Supple, no JVD , trachea is midline Chest : Normal respiratory effort, no deformity Lung : clear B/l, no crackles , no wheezing Heart : S1WS2, RRR, no gallop, no murmur Abdomen : benign , BS wnl all quadrant; Ext : No edema, no cyanosis, no calf tenderness Neuro : AAOx 3, Grossly intact IVs and Medications Medications Reviewed: Medications were reviewed in detail Lab and Diagnostics Result Diagram: 04/16/1744904/16/17449 X-Rays, CTs and MRIs Date of Service: 04/14/171903 PROCEDURE: X-RAY CHEST ONE VIEW, PORTABLE INDICATIONS: STEMI IMPRESSION: No acute cardiopulmonary disease process. Dictated by: Noelle Eduardo MD, PhD on 04/14/2017 at 19:49 Approved by: Noelle Eduardo MD, PhD on 04/14/2017 at 19:49 Date of Service: 04/14/171916 PROCEDURE: CT ANG CHEST/ABD W/WO CONTRAST INDICATIONS: syncope with epigastric pain and back pain AORTA: Intramural hematoma: Absent Maximum hematoma thickness: Not applicable Focal contrast enhancement: Intramural blood pool (< 2 mm neck or imperceptible communication with aortic lumen): Absent. Ulcer-like projection (broad communication with aortic lumen > 3 mm): Absent. Dissection: Absent. [place] classification: Not applicable. Maximum aortic diameter: 3.3 cm. [If [place] A dissection, > 5.0 cm has a poorer prognosis. If [place] B dissection, > 4.0 cm has a poorer prognosis.] Periaortic hematoma: Absent. CHEST: Lungs and pleura: No acute airspace opacities. Granuloma noted in the right lung base. No pleural effusions or pneumothorax. Central and peripheral airways are patent and normal in caliber. Mediastinum: Heart size is normal. Atherosclerotic calcifications are noted in the aorta, great vessels and dense atherosclerotic calcifications in the left coronary vasculature. No pericardial effusion. No mediastinal or hilar adenopathy by size criteria. Central pulmonary arteries are normal in size. Esophagus is normal in caliber. No hiatal hernias. Bones and chest wall: Cervical spine fixation hardware noted. No axillary adenopathy by size criteria. Calcified mediastinal and right hilar lymph nodes noted compatible with sequela prior granulomatous disease. Thyroid gland is within normal limits. No suspicious bony lesions. No vertebral body compression fractures. ABDOMEN: Vasculature: Celiac trunk and mesenteric arteries are patent. Renal arteries are also patent. Solid organs: Liver and spleen are normal in size. Gallbladder contains a 2.7 cm gallstone in the gallbladder neck. Gallbladder wall is prominent. Biliary system is non dilated. Pancreas enhances normally. No adrenal nodules. Both kidneys are normal in size and enhancement, without hydronephrosis. Peritoneum and bowel: Small hiatal hernia is noted. No free fluid or air. Bowel loops are normal in caliber and wall thickness. Nodes and vessels: No retroperitoneal or mesenteric adenopathy by size criteria. Inferior vena cava is normal in morphology. Scattered atherosclerotic calcifications are noted in the abdominal and pelvic Vasculature. Atherosclerotic calcifications noted origins of the renal arteries which may cause significant stenosis. Bones: No suspicious bony lesions. No vertebral body compression fractures. Miscellaneous: No ventral hernias. IMPRESSION: 1. No evidence of aortic dissection. 2. Dense left coronary artery atherosclerotic calcifications. 3. Atherosclerotic calcifications in the origins of the renal arteries which may cause significant stenosis. 4. Cholelithiasis with prominence of the gallbladder wall. Acute cholecystitis cannot be excluded. If there is clinical concern for cholecystitis, then abdominal ultrasound should be performed for further evaluation. Dictated by: Noelle Eduardo MD, PhD on 04/14/2017 at 21:04 Approved by: Noelle Eduardo MD, PhD on 04/14/2017 at 21:13 Assessment & Plan This is a 67 Y/O Gambian-speaking M with hx of CAD with OR in 2016 s/p LAD stenting, DM on insulin, HTN, hyperlipidemia, presenting to the ED via EMS with a family member c/o epigastric abdominal pain w/ radiation to the back onset prior to arrival. Given patient's presenting symptoms and history of recent OR he was admitted for further workup. Patient received was essentially just IV fluids in the ED with resolution of his pain. Patient's physical exam on admission was essentially normal and he was no longer experiencing epigastric abdominal pain. 1. Abdominal pain : Resolved Chest is negative . CT abdomen : CT showed: Cholelithiasis with prominence of the gallbladder wall. Acute cholecystitis cannot be excluded. Patient has no angina per se , but epigastric pain was being taken in the context of possible angina. Repeat troponin 0.10 2. Near Syncope : Patient denies that He stated he has some blurry vision after taking his insulin. No hypoglycemia reported on arrival. He used to be in Lantus previously and was recently changed to humalog Echocardiography pending Continue telemetry monitoring 3. Hypotension : POA Responded to IVF. blood pressure normalized now 5. Cholelithiasis : No clinical evidence of cholecystitis Will monitor closely Wbc 11 6. Uncontrolled Diabetes, present on admission, active -glucose 177, -A1c pending -Start low-dose correctional insulin - He is on glipizide at home and humalog pre-meal BID ( 25 units) Chronic problems Hypertension, presumed stable: On Carvedilol 6.25 Mg Tablet 25 MG PO BID , Amlodipine 5 Mg Tablet 10 MG PO DAILY , Isosorbide MN ER 60 Mg Tablet 60 MG PO 0730 Hyperlipidemia, presumed stable -Lipid panel. On satins BPH On Tamsulosin Patient is clinically and hemodynamically stable No angina but an EKG done this morning shows ST elevation in anterior leads. Patient has no angina That was discussed with Dr Jyoti Negro . It appears patient had a previous EKG with similar patter back 2015 when he had an OR . Patient will be seen in consultation after further review of medical record . He is on ASA,Plavix ,statins and a BB. No further treatment at this time Hopefully home soon VTE Prophylaxis: Sub-Q Heparin (Unfractionated), SCDs Resuscitation Status: CPR: Attempt Resuscitation Time spent 35 minutes Villa Etienne MD Apr 16, 2017 17:02
[2017-04-16 17:06] VITALS: BP 143/74; RESP 17; O2SAT 99
--- NOTE | 2017-04-16 17:40 | NUR ---
Shift note Pt has been up ambulating in the hallway independently. Denies chest pain or any discomfort with activity. Denies dizziness. Appetite is ok, denies issues voiding. He reports "I feel good". Pt's first language is Bangladeshi- the video hourly sign language interpreter services were used for assessment and for medication administration in AM. No acute changes, will continue to monitor.
--- NOTE | 2017-04-16 18:43 | PCM.DIMED ---
Discharge Instructions Date of Service Apr 16, 2017 Dates of Hospitalization Apr 14, 2017 at 22:18 Discharge Diagnosis Discharge Diagnosis 1. Abdominal pain : Resolved 2. Near Syncope 3. Hypotension : POA . Resolved 5. Cholelithiasis 6. Uncontrolled Diabetes 7. Hypertension 8 . Hyperlipidemia 9. BPH Diet Discharge Diet: Low fat, Low Sodium, Heart Healthy, Diabetic Activity Discharge Activity: No restrictions Call your provider Call your provider for: Shortness of breath, Bleeding, Chest pain Patient Instructions Follow-up plan PCP and cardiology as outpatient in one week Follow-up with PCP in: 1 week (PCP and special events coordinator ) Villa Etienne MD Apr 16, 2017 18:43
--- NOTE | 2017-04-16 18:46 | PCM.DC.MED ---
Discharge Summary Date of Service Apr 16, 2017 Dates of Hospitalization Date of Hospital Admission Apr 14, 2017 at 22:18 Date of Discharge: Apr 16, 2017 Providers: Admitting Physician: Troy Greenwood MD Primary Care Physician: Wilfred Kebede MD Attending Physician: Troy Greenwood MD Diagnosis at Time of Discharge Diagnosis at Time of Discharge 1. Abdominal pain : Resolved 2. Near Syncope 3. Hypotension : POA . Resolved 5. Cholelithiasis 6. Uncontrolled Diabetes 7. Hypertension 8 . Hyperlipidemia 9. BPH Consultations Cardiology > Procedures XRay, CTs & MRIs Date of Service: 04/14/17 190 PROCEDURE: X-RAY CHEST ONE VIEW, PORTABLE INDICATIONS: STEMI IMPRESSION: No acute cardiopulmonary disease process. Dictated by: Noelle Eduardo MD, PhD on 04/14/2017 at 19:49 Approved by: Noelle Eduardo MD, PhD on 04/14/2017 at 19:49 Date of Service: 04/14/171916 PROCEDURE: CT ANG CHEST/ABD W/WO CONTRAST INDICATIONS: syncope with epigastric pain and back pain AORTA: Intramural hematoma: Absent Maximum hematoma thickness: Not applicable Focal contrast enhancement: Intramural blood pool (< 2 mm neck or imperceptible communication with aortic lumen): Absent. Ulcer-like projection (broad communication with aortic lumen > 3 mm): Absent. Dissection: Absent. [place] classification: Not applicable. Maximum aortic diameter: 3.3 cm. [If [place] A dissection, > 5.0 cm has a poorer prognosis. If [place] B dissection, > 4.0 cm has a poorer prognosis.] Periaortic hematoma: Absent. CHEST: Lungs and pleura: No acute airspace opacities. Granuloma noted in the right lung base. No pleural effusions or pneumothorax. Central and peripheral airways are patent and normal in caliber. Mediastinum: Heart size is normal. Atherosclerotic calcifications are noted in the aorta, great vessels and dense atherosclerotic calcifications in the left coronary vasculature. No pericardial effusion. No mediastinal or hilar adenopathy by size criteria. Central pulmonary arteries are normal in size. Esophagus is normal in caliber. No hiatal hernias. Bones and chest wall: Cervical spine fixation hardware noted. No axillary adenopathy by size criteria. Calcified mediastinal and right hilar lymph nodes noted compatible with sequela prior granulomatous disease. Thyroid gland is within normal limits. No suspicious bony lesions. No vertebral body compression fractures. ABDOMEN: Vasculature: Celiac trunk and mesenteric arteries are patent. Renal arteries are also patent. Solid organs: Liver and spleen are normal in size. Gallbladder contains a 2.7 cm gallstone in the gallbladder neck. Gallbladder wall is prominent. Biliary system is non dilated. Pancreas enhances normally. No adrenal nodules. Both kidneys are normal in size and enhancement, without hydronephrosis. Peritoneum and bowel: Small hiatal hernia is noted. No free fluid or air. Bowel loops are normal in caliber and wall thickness. Nodes and vessels: No retroperitoneal or mesenteric adenopathy by size criteria. Inferior vena cava is normal in morphology. Scattered atherosclerotic calcifications are noted in the abdominal and pelvic Vasculature. Atherosclerotic calcifications noted origins of the renal arteries which may cause significant stenosis. Bones: No suspicious bony lesions. No vertebral body compression fractures. Miscellaneous: No ventral hernias. IMPRESSION: 1. No evidence of aortic dissection. 2. Dense left coronary artery atherosclerotic calcifications. 3. Atherosclerotic calcifications in the origins of the renal arteries which may cause significant stenosis. 4. Cholelithiasis with prominence of the gallbladder wall. Acute cholecystitis cannot be excluded. If there is clinical concern for cholecystitis, then abdominal ultrasound should be performed for further evaluation. Dictated by: Noelle Eduardo MD, PhD on 04/14/2017 at 21:04 Approved by: Noelle Eduardo MD, PhD on 04/14/2017 at 21:13 Brief History This is a pleasant 67 Y/O Comoran-speaking M with hx of CAD and ND in 2016 s/p LAD stenting, DM controlled on Humolog insulin pen, HTN, hyperlipidemia, who presented to the ED via EMS with complaint of acute onset epigastric abdominal pain with radiation to the middle back onset just prior to arrival. In the ED he was hypotensive and had ST elevation in leads V2 and V3 without reciprocal ST depression. He was given aspirin but not nitro due to hypotension. He is accompanied by his . The patient was on break while at work reports he was drinking coffee. He then got up to return to work when he started to experience the epigastric pain he described as a pressure. Associated symptoms included shortness of breath, and the sensation that his vision suddenly went white, he also felt dizzy (however his explanation was recorded as 2 dizziness upon further questioning was somewhat convoluted, and the rate later stated that he was not dizzy). Per the ED physician note, the patient initially reported loss of consciousness. However he adamantly denies ever having lost consciousness to this physician. He states that the pain lasted about 30 minutes total and was not associated with exertion,or postprandial type pain. He does report that the pain was very similar to what it was like when he had his ND in 2016. This again is different then what was told to the ED physician, in that the patient reported he never experienced this pain previously. Even when he had prior heart problems in the past. His pain was nearly completely resolved shortly after having arrived in the ED. In the ED he essentially only had received IV fluids and his pain completely resolved thereafter. He does report recent medication changes to his insulin medication only. He is no longer taking Lantus and is only taking Humalog. He is compliant on all of his current antihypertensive medications including lisinopril 20 mg twice per day, carvedilol 6.25 mg twice per day, amlodipine 5 mg daily, and isosorbide mononitrate 60 mg daily. He has been on these BP medications for some time and denies any side effects or hypotension. He is not anticoagulated. He denied fever, chills, sweats, productive cough, chest pain, nausea, vomiting, numbness in the extremities, weakness, KIM, current vision changes, and current epigastric abdominal pain, dysuria, constipation. Of note he does have a history of difficulty urinating, and also takes tamsulosin for BPH. In the ED: Troponin 0.023,--> 0.013,--> 0.010 EKG: ST elevation in leads V2 and V3, and V4 with T wave inversion in Lead 1, AvL, V4-V6. CXR: No acute cardiopulmonary disease process. CT Angio chest abdomen with and without contrast showed: 1. No evidence of aortic dissection. 2. Dense left coronary artery atherosclerotic calcifications. 3. Atherosclerotic calcifications renal arteries, T 36.1, pulse 62, RR 18, blood pressure 101/56 map 71, and a percent on room air. H/H 14.7/42.5, WBC 9.3, platelets 403, otherwise normal hemogram. Chemistry panel: Sodium 135, potassium 4.0, chloride 95, CO2 21, BUN 28, creatinine 1.26, glucose 177, magnesium 3.0, remainder of chemistry panel within normal limits. Hospital Course This is a 67 Y/O Comoran-speaking M with hx of CAD with ND in 2016 s/p LAD stenting, DM on insulin, HTN, hyperlipidemia, presenting to the ED via EMS with a family member c/o epigastric abdominal pain w/ radiation to the back onset prior to arrival. Given patient's presenting symptoms and history of recent ND he was admitted for further workup. Patient received was essentially just IV fluids in the ED with resolution of his pain. Patient's physical exam on admission was essentially normal and he was no longer experiencing epigastric abdominal pain. 1. Abdominal pain : Resolved Chest is negative . CT abdomen : CT showed: Cholelithiasis with prominence of the gallbladder wall. Acute cholecystitis cannot be excluded. Patient has no angina per se , but epigastric pain was being taken in the context of possible angina. Repeat troponin 0.10 2. Near Syncope : Patient denies that He stated he has some blurry vision after taking his insulin. No hypoglycemia reported on arrival. He used to be in Lantus previously and was recently changed to humalog Echocardiography pending Continue telemetry monitoring 3. Hypotension : POA Responded to IVF. blood pressure normalized now 5. Cholelithiasis : No clinical evidence of cholecystitis Will monitor closely Wbc 11 6. Uncontrolled Diabetes, present on admission, active -glucose 177, -A1c pending -Start low-dose correctional insulin - He is on glipizide at home and humalog pre-meal BID ( 25 units) Chronic problems Hypertension, presumed stable: On Carvedilol 6.25 Mg Tablet 25 MG PO BID , Amlodipine 5 Mg Tablet 10 MG PO DAILY , Isosorbide MN ER 60 Mg Tablet 60 MG PO 0730 Hyperlipidemia, presumed stable -Lipid panel. On satins BPH On Tamsulosin Patient is clinically and hemodynamically stable No angina but an EKG done this morning shows ST elevation in anterior leads. Patient has no angina That was discussed with Dr Jyoti Negro . It appears patient had a previous EKG with similar patter back 2016 when he had an ND . Patient will be seen in consultation after further review of medical record . He is on ASA,Plavix ,statins and a BB. No further treatment at this time. Patient to follow up with primary care doctor and primary treasury accountant as outpatient in 2 weeks Exam Vital Signs (Last) Date Time Temp Pulse Resp B/P Pulse Ox O2 Delivery O2 Flow Rate FiO2 04/16/17 17:06 36.7 17 143/74 99 Room Air 04/16/17 12:31 77 Exam Gen : Sitting in chair comfortably. NAD , very pleasant HEENT : Sclerae is anicteric Neck : Supple, no JVD , trachea is midline Chest : Normal respiratory effort Lung : clear B/l, no crackles , no wheezing Heart : S1WS2, RRR, no gallop Abdo,en : benign Ext : No edema, no cyanosis Neuro : AAOx 3, non focal Test 04/14/17 19:10 04/14/17 22:15 04/14/17 22:45 04/15/17 03:46 Prothrombin Time 9.5sec (8.1-12.5) Prothromb Time International Ratio 0.89ratio Activated Partial Thromboplast Time 22.4sec (22.8-33.0) Lipase 16U/L (13-60) Magnesium Level 2.6mg/dL (1.6-2.6) Thyroid Stimulating Hormone (TSH) 0.963uIU/mL (0.450-4.500) Hold Urine Received (Received) Triglycerides Level 128mg/dL (0-149) Cholesterol Level 121mg/dL (100-199) LDL Cholesterol, Calculated 67.400mg/dL (0-99) VLDL Cholesterol 25.600mg/dL HDL Cholesterol 28mg/dL (>39) Cholesterol/HDL Ratio 4.32 (0.0-4.4) Test 04/16/17 04:50 White Blood Count 9.3th/mm3 (3.8-10.1) Red Blood Count 4.80mil/mm3 (4.40-5.80) Hemoglobin 13.5g/dL (13.8-17.2) Hematocrit 39.0% (41.0-50.0) Mean Corpuscular Volume 81.3fL (81-100) Mean Corpuscular Hemoglobin 28.1pg (27.0-35.0) Mean Corpuscular Hemoglobin Concent 34.6% (32.0-37.0) Red Cell Distribution Width 14.0% (12.3-15.4) Platelet Count 306bil/L (150-400) Neutrophils (%) (Auto) 55.2% (40-74) Lymphocytes (%) (Auto) 31.6% (14-46) Monocytes (%) (Auto) 10.3% (4-12) Eosinophils (%) (Auto) 2.3% (0-5) Basophils (%) (Auto) 0.4% (0-3) Sodium Level 139mEq/L (134-144) Potassium Level 4.5mEq/L (3.5-5.2) Chloride Level 104mEq/L (97-108) Carbon Dioxide Level 20mmol/L (18-29) Blood Urea Nitrogen 20mg/dL (8-27) Creatinine 0.89mg/dL (0.76-1.27) Estimat Glomerular Filtration Rate 90mL/min (>59) Glucose Level 151mg/dL (60-99) Calcium Level 9.0mg/dL (8.5-10.1) Total Bilirubin 0.7mg/dL (0.0-1.2) Aspartate Amino Transf (AST/SGOT) 15U/L (0-50) Alanine Aminotransferase (ALT/SGPT) 12U/L (0-44) Alkaline Phosphatase 108U/L (25-160) Troponin T 0.011ug/L (0.0-0.011) Total Protein 6.4g/dL (6.4-8.4) Albumin 3.6g/dL (3.4-5.0) Procalcitonin 0.09ng/mL (0.00-0.08) Discharge Medications Discharge Medications Amlodipine (Amlodipine) 5 Mg Tablet 10 MG PO DAILY Prescribed by: KAYCEE MAYES MD Aspirin Chew (Aspirin Chew) 81 Mg Tablet 81 MG PO DAILY Prescribed by: KAYCEE MAYES MD Atorvastatin Calcium (Atorvastatin Calcium) 10 Mg Tablet 40 MG PO HS Prescribed by: KAYCEE MAYES MD Carvedilol (Carvedilol) 6.25 Mg Tablet 25 MG PO BID Prescribed by: KAYCEE MAYES MD Clopidogrel (Clopidogrel) 75 Mg Tablet 75 MG PO DAILY (Reported) Gemfibrozil (Gemfibrozil) 600 Mg Tablet 600 MG PO BID (Reported) Glipizide (Glipizide) 10 Mg Tablet 10 MG PO DAILY (Reported) Hydrochlorothiazide (Hydrochlorothiazide) 12.5 Mg Capsule 12.5 MG PO DAILY ( Reported) Insulin Glargine (Lantus U100 Insulin Vial) 100 Unit/Ml Vial 60 UNIT SUBQ BID ( Reported) Isosorbide MN ER (Isosorbide MN ER) 60 Mg Tablet 60 MG PO 0730 Prescribed by: KAYCEE MAYES MD Lisinopril (Lisinopril) 20 Mg Tablet 20 MG PO BID Prescribed by: KAYCEE MAYES MD Pantoprazole DR (Pantoprazole DR) 40 Mg Tablet.dr 40 MG PO DAILY (Reported) Tamsulosin (Flomax) 0.4 Mg Capsule 0.8 MG PO DAILY (Reported) Terazosin (Terazosin) 10 Mg Capsule 10 MG PO HS (Reported) As needed Insulin Aspart (NovoLOG U-100 Pen) 100 Unit/Ml Insuln.pen 5 UNITS SQ PRN BG > 200 (Reported) Miscellaneous Medications Empagliflozin (Jardiance) 10 Mg Tablet 10 MG PO (Reported) Insulin Lispro (Humalog Kwikpen) 200 Unit/Ml (3 Ml) Insuln.pen 200 UNIT SQ ( Reported) Followup Plan Follow-up plan PCP and cardiology as outpatient in one week Discharge Diet: Low fat, Low Sodium, Heart Healthy, Diabetic Discharge Activity: No restrictions Follow-up with PCP in: 1 week (PCP and treasury accountant ) Villa Etienne MD Apr 16, 2017 18:45
[2017-04-16 19:35] VITALS: BP 138/77; PULSE 74; RESP 16; O2SAT 99
--- NOTE | 2017-04-16 22:21 | NUR ---
discharge see pt assessment charting, pt stable, vss, tele- sr, bp stable, afebrile, denies cp ls-clear, ra sats 99%, denies sob denies n/v denies pain, pt able to ambulate in hallway with steady gait, discharging md leaving floor at end of his shift stating that he and cardiology agreed that pt could go home, pt to f/u with cardiology and pcp in one week, phone numbers given, discharge info gathered and printed up with admit/furniture maker, paperwork done per discharge protocol, pt given discharge teaching on pt's medical hx and current medical problems, pt and his family expressed understanding, discharge teaching done per swedish translation, med teaching done and next doses listed, pt and his family expressed understanding, pt's son speaks indonesian and states that he lives very close to his parents with lots of interaction between the two, pt and family stated they do not have any questions post discharge teaching, saline locks time two discontinued, tele discontinued, pt's belongings sent home with him, pt taken out to of hospital per w/c,
== END 2017-04-16 20:50 | disposition home or self-care (01) ==
LOC: SED 19:00 → INTOOBSV 22:18 → PCC 22:18
PROVIDERS: ADMIT Hospitalist; ATTEND Hospitalist
DX: R10.13 Epigastric pain (principal); R55 Syncope and collapse; I95.9 Hypotension, unspecified; K80.20 Calculus of gallbladder without cholecystitis without obstruction; E11.65 Type 2 diabetes mellitus with hyperglycemia; Z79.4 Long term (current) use of insulin; I10 Essential (primary) hypertension; E78.5 Hyperlipidemia, unspecified; N40.1 Benign prostatic hyperplasia with lower urinary tract symptoms; R39.11 Hesitancy of micturition; I25.10 Atherosclerotic heart disease of native coronary artery without angina pectoris; Z95.5 Presence of coronary angioplasty implant and graft
CPT/HCPCS: 36415; 71010; 71275; 74175; 80048; 80053; 80061; 83036; 83690; 83735; 84145; 84443; 84484; 85025; 85610; 85730; 93005; 96360; 99285; G0378; J1644; J1815; J7030; Q9967